=== PATIENT | female | born 1970 | race Two or more races ===

== ENCOUNTER → 2025-04-27 | Outpatient (CLI) | payer MEDICAID, SELFPAY ==
--- NOTE | 2025-04-27 14:10 | XR_ITS ---
Examination: Left knee single view TECHNIQUE: AP standing left knee single view Date and time: April 27, 2025 1421 hours INDICATIONS: Injury to the knee 2016 with persistent knee pain. FINDINGS: Moderate osteopenia. Severe narrowing medial joint space left knee No fracture Significant osteoarthritis lateral joint space IMPRESSION: No fracture Severe narrowing medial joint space left knee
== END | disposition home or self-care (01) ==
LOC: SDIM 13:24
PROVIDERS: Referring Provider Orthopaedic Surgery; Visit Provider Orthopaedic Surgery
DX: M25.862 Other specified joint disorders, left knee (principal)
CPT/HCPCS: 73560

== ENCOUNTER 2025-06-09 15:37 | Observation (INO) | payer MEDICAID, SELFPAY ==
[2025-06-08 12:20] VITALS: BMI 32.3
--- NOTE | 2025-06-08 12:35 | EKG_ITS ---
[facility] Test Date: 2025-06-08 Pat Name: DOMINIC BENSON Department: Room: - Gender: Female Plant Specialist: KAMLA : 1970 Requested By: Mak Aceves Order Number: [id number] Reading MD: Mak Aceves Measurements Intervals [place] Rate: 93 P: 48 NM: 144 QRS: 41 QRSD: 71 T: 31 QT: 351 QTc: 437 Interpretive Statements SINUS RHYTHM No previous ECG available for comparison /[id number]/[email or web address]/[id number]
[2025-06-08 13:30] LABS: Basophils # (Auto) 0.0 Thou/mm3 (0.0-0.2); Basophils % (Auto) 0 % (0-2.5); Eosinophils # (Auto) 0.1 Thou/mm3 (0.0-0.5); Eosinophils % (Auto) 1 % (0-10); Hematocrit 40.2 % (36.0-46.0); Hemoglobin 13.5 g/dL (12.0-16.0); Immature Granulocytes Auto 0.06 Thou/mm3 (0.00-0.00); Lymphocytes # (Auto) 1.8 Thou/mm3 (1.0-4.8); Lymphocytes % (Auto) 27 % (10-50); Mean Corpuscular HGB Conc 33.6 g/dl (31.0-37.0); Mean Corpuscular Hemoglobin 30.5 pg (25.0-35.0); Mean Corpuscular Volume 91 fL (80-100); Monocytes # (Auto) 0.4 Thou/mm3 (0.0-0.8); Monocytes % (Auto) 6 % (0-12); Neutrophils # (Auto) 4.4 Thou/mm3 (1.8-7.7); Neutrophils % (Auto) 65 % (37-80); Nucleated Red Blood Cell # 0.00 Thou/mm3 (0.00-0.00); Nucleated Red Blood Cell % 0 /100 WBC (0); Platelet Count 308 Thou/mm3 (140-440); RDW Standard Deviation 42.4 fL (36.4-46.3); Red Blood Count 4.42 Miln/mm3 (4.00-5.20); White Blood Count 6.7 Thou/mm3 (3.6-11.0)
[2025-06-08 13:47] LABS: Alanine Aminotransferase 13 U/L (10-49); Albumin, Serum 5.0 gm/dL (3.5-5.0); Albumin/Globulin Ratio 2.1 (1.2-2.2); Alkaline Phosphatase 150 U/L (46-116); Anion Gap 12 (7-16); Aspartate Amino Transferase 22 U/L (0-34); BUN/Creatinine Ratio 13 Ratio (12-20); Bilirubin,Total 0.4 mg/dL (0.3-1.2); Blood Urea Nitrogen 9 mg/dL (9-23); Calcium 9.2 mg/dL (8.3-10.6); Calcium (Corrected) 9.2 mg/dL (8.5-10.1); Carbon Dioxide 25.7 mMol/L (20.0-31.0); Chloride 102 mMol/L (98-107); Creatinine (Component) 0.7 mg/dL (0.6-1.3); Estimated Creatinine Clearance 78.8 mL/min (>60); Globulin 2.4 gm/dL (2.3-3.5); Glucose 99 mg/dL (74-106); Osmolality,Calculated 278 (275-295); Potassium 3.5 mMol/L (3.4-5.1); Sodium 140 mMol/L (136-145); Total Protein 7.4 gm/dL (5.7-8.2); eGFR > 60 See Note
[2025-06-08 14:02] LABS: INR 0.9 (0.9-1.3); Partial Thromboplastin Time 28.5 Seconds (22.0-36.0); Prothrombin Time 9.9 Seconds (9.0-12.2)
[2025-06-09] VITALS (15 sets, daily range): BP systolic 109–178; BP diastolic 62–103; PULSE 81–101; RESP 12–20; TEMP 36.1–37.2; O2SAT 97–100; BMI 31.6
--- NOTE | 2025-06-09 09:05 | SUR.PREOP ---
Patient expressed gratitude for prayer before their procedure.
--- NOTE | 2025-06-09 09:05 | SUR.PREOP ---
Patient expressed gratitude for prayer before their procedure.
--- NOTE | 2025-06-09 09:05 | SUR.PREOP ---
Patient expressed gratitude for prayer before their procedure.
--- NOTE | 2025-06-09 13:04 | XR_ITS ---
Examination: Knee, right, 3 views Technique: Knee AP, lateral, oblique 3 views Date and time of exam: June 09, 2025, 1348 hours INDICATIONS: Postop knee replacement FINDINGS: Total left knee replacement Satisfactory alignment No acute fracture No dislocation IMPRESSION: Total left knee replacement with satisfactory alignment
--- NOTE | 2025-06-09 13:05 | PD.SUROPNT ---
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 Femur size 6 narrow Tibial baseplate size C Polyethylene size 12 mm MC Patellar size 26 mm Findings Patient has significant DJD of the left knee joint. The medial joint space and patellofemoral joint space was extremely narrowed. The articular surface were denuded of cartilage. Significant osteophytes were present on the tibia as well as femur and also patella. Procedure Description The patient was given a general and [spinal] anesthesia. The knee block was also given. Once satisfactory anesthesia was achieved a tourniquet was placed on left upper thigh. Intravenous antibiotics was given at the time of anesthesia. The patient was thoroughly prepped and draped. After using Esmarch the tourniquet pressure was raised to 350 mmHg. A skin incision was made 2 inches proximal to the upper pole of patella going as far down as up to the medial aspect of the tibial tuberosity. The skin was raised as a flap on the site. The bleeding vessels were electrocoagulated as and when encountered. The quadriceps tendon, medial border of the patella and the patellar tendon along the medial aspect of the tibial tuberosity was incised and reflected. The patellar tendon was reflected as much as needed to bárbara the patella. The soft tissue from the upper medial border of the tibia was reflected to correct her genu varum deformity. The knee joint was flexed. The anterior cruciate ligament, medial and lateral meniscus were excised. Next para drill hole was made to the inferior surface of the femur. Following that a swab was placed. A 6?? of abduction was already put into it. Following that a cutting block for the inferior cut of the femur was placed and nicely secured with the pins. The swat was removed. The inferior cut of the femur was made and after that the cutting block was removed. Following that a sizer was placed. A decision was made to use size [6] femur implant. 2 drill holes each in 3?? of external rotation were made. The sizer was removed. Size [4] cutting block was placed. Following that anterior, posterior, anterior chamfer and posterior chamfer cuts were made. The cutting block was removed. The knee joint was extended and a 10 mm trial plastic was removed and the intended level of the tibial cut was marked. The knee joint was flexed. With the help of double-pronged the tibia was displaced anteriorly. An extramedullary jig for the cutting block placement of the tibia was placed. The mechanical axis of the zig was parallel to the mechanical axis of the tibia. Following that the tibial cutting block was placed at the desired level and was secured nicely with the help of pins. Following that the tibial cut was made. In this case was posterior cruciate ligament was saved. The cutting block was removed. The spacer was placed and a decision was made to use size [12] polyethylene. The sizing of the tibial baseplate was done and the decision was made to use size [C] tibial baseplate. Following that size [6] trial femur implant was placed in lateralized position and size [C] tibial tibial baseplate along with size [12] MC trial plastic was placed in knee joint was flexed and extended quite a few times and tibial baseplate was allowed to sit wherever it wanted to. The markings were made for the tibial baseplate. 2 drill holes were made for the inferior surface of the femur trial implant. The trial implant was removed and tibial baseplate was placed again with the help of pins. The collar was placed and superior hole was drilled. Following that a fin cut was made. The patella was reamed with [26] mm diameter reamer. [12] mm thickness was left. A collar was placed and 3 drill holes were made. All the trial implant was placed and patellar tracking was checked and found to be good. Lateral release was done at this point. The wound was irrigated with antibiotic solution every 4-5 minutes. Now the power lavage antibiotic solution was used. The knee joint was flexed. The bone were made dry. The cement was mixed. With the help of cement the tibial baseplate was mounted. The excess cement was removed. The femur implant was placed and trial plastic was placed and knee joint was extended. Patella was also mounted with the help of cementing. Excess cement was removed. Osteophytes from the patella was removed at this time. Once the cement was set the tourniquet pressure was released. The bleeding vessels were electrocoagulated. The trial plastic was removed and 12 mm MC ultra high molecular weight polyethylene was placed. Closure The quadriceps muscle was closed with the help of 1 strata fix in continuous fashion. The fat layer was closed with 2 strata fix. The skin was closed with Monocryl in continuous fashion. To cleaning the wound Prineo tape was applied. Patient tolerated procedure very well. Estimated blood loss [25] mL. Prognosis in this case is good. This was taken to the recovery room in good condition. Anesthesia GETA, spinal and other Pathology / specimen None Estimated Blood Loss 25 Surgeon Mak Harrington MD Surgical Staff Operation Date: 06/09/25 10:30 Case Staff Anesthesiologist: Osmin Prieto RNchar filter tank tender head: Adelaida Rodrigues
--- NOTE | 2025-06-09 13:29 | SUR.PHASEI ---
pt received from OR in recovery bay 5. pt asleep but responds to voice, breathing unlabored on nc 4l. v/s stable. pt dressing to left lower extremity cdi. report received from Dr. Prieto and Jessika VIEYRA.
--- NOTE | 2025-06-09 13:50 | ESHP_ITS ---
RE: DOMINIC BENSON : 1970 DATE OF ADMISSION: 06/09/2025 Patient came to my office on 06/08/2025 for detailed preop history and physical examination. HISTORY OF PRESENT COMPLAINT: Patient present to me earlier with history pain in the left knee joint. Pain is quite bad. Patient graded intensity of pain to be 8-9 out of 10. Unable to sleep. Unable to walk more than 1 or 2 blocks before she had to stop. X-ray revealed severe osteoarthritic changes of the left knee joint with reduced medial joint space and patellofemoral joint space. PAST MEDICAL HISTORY: Patient has history of high blood pressure. No history of diabetes mellitus, asthma, seizure, chest pain, myocardial infarction, or bleeding disorder. PAST SURGICAL HISTORY: Nil known. DRUG HISTORY: The patient is taking 1. Hydrochlorothiazide. 2. Bupropion. ALLERGIES: NIL KNOWN. FAMILY HISTORY AND SOCIAL HISTORY: Noncontributory in this case. PHYSICAL EXAMINATION: General: Normal built lady. BMI is 31. Vital Sign: Pulse 88 per minute, blood pressure 140/76. Neck: Soft, supple. No mass felt. Trachea is centrally placed. Cardiovascular System: First and second heart sound normal. No murmur heard. Respiratory System: Bilateral vesicular breath sounds. Chest clear. Abdomen: Soft. No mass felt. Bowel sounds present. Left Knee Examination: Revealed 1+ swelling and 2+ tenderness. Genu varum deformity present. Active range of motion 0-115 degree of flexion. Crepitus is present. Patient walks with a limp. RADIOGRAPHIC STUDIES: X-ray confirms significant osteoarthritic changes of the left knee joint. Since patient is symptomatic, patient want to proceed with surgery. Left total knee replacement was discussed and advised. With help of pictures, posters, and knee model, it was explained. All questions were answered. Risk with anesthesia was explained and that includes but not limited to reaction to anesthetic agents, cardiac arrest, or rarely it might be fatal. Risk with operation includes infection and if that happens, patient may need further surgical procedure. Sometime rare complication happens and if that happened that has to be taken care of. Rarely, there is a possibility of damage to the nerve and/or vessels. No guarantee is given regarding outcome of the procedure and/or of relief of symptoms. Patient is cleared for surgical procedure by her family doctor. Accordingly, surgery is booked for 06/09/2025. Appropriate lab work is done. DT: 13:28:18 TT: 13:48:00 Ref: [id number] - TID: [id number]
[2025-06-09] MEDS: hydrALAZINE INJ 20 MG/ML VIAL 5 MG IV (13:51)
[2025-06-09] MEDS: fentaNYL CIT INJ 50 mCg/ML AMP 2ML IVP (14:04)
--- NOTE | 2025-06-09 14:10 | SUR.PHASEII ---
pt able to tolerate oral fluids without difficulty swallowing or nausea/vomiting.
[2025-06-09] MEDS: ACETAMINOPHEN INJ 1,000 MG/100 ML VIAL 1000 MG IV (14:17)
--- NOTE | 2025-06-09 15:17 | SUR.PHASEII ---
pt asleep but responds to voice, breathing unlabored on 2l nc. v/s stable. pt dressing to left lower extremity cdi. report called to Jojo VIEYRA. pt will be transferred to room at this time .
[2025-06-09] MEDS: MORPHINE SULF INJ 4 MG/ML VIAL IVP ×2 (16:45→20:42)
--- NOTE | 2025-06-09 19:00 | PC.NURSE ---
Report received, pt seen resting family at side, no current complaints call light within reach.
[2025-06-09] MEDS: ceFAZolin/D5W 1 GM IVPB 1 GM/50 ML BAG IV (20:26)
--- NOTE | 2025-06-09 20:45 | PC.NURSE ---
Provided pt with Morphine per order, assisted with pt with positioning self.
[2025-06-10] VITALS: BP 117/68; PULSE 105; RESP 17; TEMP 36.3; O2SAT 97
[2025-06-10] MEDS: MORPHINE SULF INJ 4 MG/ML VIAL IVP ×3 (00:43→09:45)
--- NOTE | 2025-06-10 00:56 | PC.NURSE ---
Pt/family had questions in regards to walker on discharge, will need to follow up with PT and contact director social welfare for poss DME needs. Will input order.
[2025-06-10 04:00] VITALS: BP 132/72; PULSE 100; RESP 17; TEMP 36.3; O2SAT 98
[2025-06-10] MEDS: ceFAZolin/D5W 1 GM IVPB 1 GM/50 ML BAG IV (04:29)
[2025-06-10 04:34] VITALS: PULSE 90; RESP 18; RESP 99
[2025-06-10 05:57] LABS: Basophils # (Auto) 0.0 Thou/mm3 (0.0-0.2); Basophils % (Auto) 0 % (0-2.5); Eosinophils # (Auto) 0.0 Thou/mm3 (0.0-0.5); Eosinophils % (Auto) 0 % (0-10); Hematocrit 35.3 % (36.0-46.0); Hemoglobin 11.7 g/dL (12.0-16.0); Immature Granulocytes Auto 0.07 Thou/mm3 (0.00-0.00); Lymphocytes # (Auto) 0.7 Thou/mm3 (1.0-4.8); Lymphocytes % (Auto) 4 % (10-50); Mean Corpuscular HGB Conc 33.1 g/dl (31.0-37.0); Mean Corpuscular Hemoglobin 30.3 pg (25.0-35.0); Mean Corpuscular Volume 92 fL (80-100); Monocytes # (Auto) 0.8 Thou/mm3 (0.0-0.8); Monocytes % (Auto) 5 % (0-12); Neutrophils # (Auto) 14.2 Thou/mm3 (1.8-7.7); Neutrophils % (Auto) 90 % (37-80); Nucleated Red Blood Cell # 0.00 Thou/mm3 (0.00-0.00); Nucleated Red Blood Cell % 0 /100 WBC (0); Platelet Count 302 Thou/mm3 (140-440); RDW Standard Deviation 43.3 fL (36.4-46.3); Red Blood Count 3.86 Miln/mm3 (4.00-5.20); White Blood Count 15.8 Thou/mm3 (3.6-11.0)
[2025-06-10] MEDS: KETOROLAC INJ 30 MG/ML VIAL 15 MG IVP (07:33)
[2025-06-10 07:41] VITALS: BP 126/71; PULSE 102; RESP 20; TEMP 36.8; O2SAT 99
[2025-06-10 12:00] VITALS: BP 132/66; PULSE 98; RESP 18; TEMP 36.5; O2SAT 97
[2025-06-10 12:49] VITALS: BMI 13.0
--- NOTE | 2025-06-19 12:59 | PD.ANESPROG ---
Documentation for date of: 06/19/25 POST ANESTHESIA NOTE: Patient had GETA and L femoral block for L TKA on 06/09/25. I just called her number for follow up but no answer. Osmin Prieto MD Anesthesia Progress Note Progress Note Most recent Vital Signs: Last Vital Signs Temp 97.7 F 06/10/25 12:00 Pulse 98 06/10/25 12:00 Resp 18 06/10/25 12:00 BP 132/66 H 06/10/25 12:00 Pulse Ox 97 06/10/25 12:00 O2 Del Method Nasal Cannula 06/10/25 12:00 O2 Flow Rate 1 06/10/25 12:00
== END 2025-06-10 14:50 | disposition home or self-care (01) ==
LOC: S2EX 16:17 → S3SX 06-10 09:53
PROVIDERS: Anesthesiology; Admitting Provider Orthopaedic Surgery; PCP Nurse Practitioner Family; Referring Provider Orthopaedic Surgery; Visit Provider Orthopaedic Surgery
PROC: (CPT 27447; principal; 2025-06-09 10:30)
DX: M17.12 Unilateral primary osteoarthritis, left knee (principal); Z01.810 Encounter for preprocedural cardiovascular examination
CPT/HCPCS: 27447; 36415; 73562; 80053; 85025; 85610; 85730; 86850; 86900; 86901; 86923; 87081; 93005; 93225; 96374; 96375; 97163; A4217; A4649; C1776; G0378; J0131; J0360; J0689; J0690; J1100; J1171; J1580; J1885; J2250; J2270; J2405; J2704; J2795; J3010; J3490; J1805